=== PATIENT | male | born 1980 | race Caucasian/White ===

== ENCOUNTER 2016-05-30 23:31 | Emergency (ER) ==
[2016-05-30 23:47] VITALS: BP 123/073
--- NOTE | 2016-05-30 23:57 | PROVIDER DOCUMENTATION ---
[facility] General <Gabriel Abad - Last Filed: 05/31/16 00:00> - General Source: patient - History of Present Illness-[facility] Location: reports: ear (R), ear (L) Quality of Pain: reports: aching Severity: reports: mild Onset/Duration: reports: 5 days ago Timing: reports: still present Prearrival Treatment: Initiated no prearrival treatment Locality of Occurance: Home Similar Symptoms Previously?: No Recently seen or treated by another doctor?: No - Ears Ear Problem Symptoms: reports: earache, hearing loss Ear Problem Context: reports: none <Quin Stanton - Last Filed: 05/31/16 00:03> - General Chief Complaint: Earache Stated Complaint: EAR PAIN Time Seen by Provider: 05/30/16 23:50 Allergies/Adverse Reactions: Patient Allergies Allergy/AdvReac Type Severity Reaction Status Date / Time loratadine Allergy Intermediate RASH Verified 05/05/16 22:57 [From Claritin-D 12 Hour] pseudoephedrine sulfate * Allergy Intermediate RASH Verified 05/05/16 22:57 [From Claritin-D 12 Hour] tramadol Allergy Unknown Verified 05/05/16 22:57 Home Medications: Home Medication List Medication Instructions Recorded Confirmed Last Taken Type Hydrocodone/APAP 5 mg/325 mg 1 each PO Q6H PRN PRN #7 tablet 05/10/16 Unknown Rx [Lafferty-5] - History of Present Illness-[facility] Nature of Presenting Problem: 35 year old M presents to the ED with a cc of right ear pain and loss of hearing with an onset of 5 days ago. Pt states that he has also had some decreased hearing in left ear. (Quin Stanton) Review of Systems - Adult - REVIEW OF SYSTEMS - ADULT Constitutional: denies: chills, fever Eyes: denies: blurred vision, double vision Ears, Nose, Mouth & Throat: reports: ear pain, hearing loss Cardiovascular: reports: no symptoms reported Respiratory: reports: no symptoms reported Gastrointestinal: reports: no symptoms reported Genitourinary: reports: no symptoms reported Musculoskeletal: reports: no symptoms reported Integumentary: reports: no symptoms reported Neurological: reports: no symptoms reported Psychiatric: reports: no symptoms reported Endocrine: reports: no symptoms reported Hematologic/Lymphatic: reports: no symptoms reported Allergic/Immunologic: reports: no symptoms reported All Other Systems: Reviewed and Negative <Quin Stanton - Last Filed: 05/31/16 00:03> Past History - Adult - PAST MEDICAL HISTORY-ADULT Review of Records: reports: Nursing Assessment Review, Medications Reviewed Major Childhood Illnesses: reports: denies history Cardiovascular: reports: other (pleurisy) Respiratory: reports: denies history Gastrointestinal: reports: other (h.pylori) Obstetrical/Gynecological: reports: denies history Genitourinary: reports: denies history Musculoskeletal: reports: denies history Neurological: reports: denies history Endocrine/Immune: reports: denies history Other Conditions: reports: denies history - PRIOR SURGERIES/PROCEDURES Surgical/Procedure History: reports: other (oral) - IMMUNIZATION STATUS Childhood Immunizations: See Nurse Assessment Flu Vaccine: See Nurse Assessment - SOCIAL HISTORY Smoking: cigarettes, greater than 1 pack/day Provider spent 3-5 mins advising pt. on dangers of tobacco.: Discussed manners to quit use, and f/u contacts for add'l counseling. Substance Use: none/never Alcohol Use Frequency: never <Quin Stanton - Last Filed: 05/31/16 00:03> Physical Exam- EENT - Physical Exam EENT Initial Vital Signs Reviewed: Yes General Appearance: appears well, alert, no apparent distress Ear Exam: bilateral ear: TM normal (after irrigation), other (ear wax impaction of bilateral ears) Respiratory: no respiratory distress Cardiovascular: regular rate, rhythm Integumentary: normal color, normal turgor, warm/dry Psych/Mental Status: normal mood/affect, normal thought content, normal thought process, oriented x 3 <Quin Stanton - Last Filed: 05/31/16 00:03> Progress <Gabriel Abad - Last Filed: 05/31/16 00:00> <Quin Stanton - Last Filed: 05/31/16 00:03> - PLAN OF CARE/RESULTS Progress/Plan/Lab Results: plan of care: ear irrigation Vital Signs - 24 hr 05/30/16 23:44 Temperature 98 F Pulse Rate 77 Respiratory 18 Rate Blood Pressure 123/073 O2 Sat by Pulse 99 Oximetry Pt given results and will be d/c home w/o rx to follow up with PCP. Pt verbally understood instructions. PT remained clinically stable throughout the course of the ED stay and will return if symptoms worsen. (Quin Stanton) Procedures - ENT PROCEDURES Cerumen Removal: Bilateral Method: Irrigation <Quin Stanton - Last Filed: 05/31/16 00:03> Departure - Departure Time of Disposition Order: 00:00 Certified Medical Emergency: Emergent <Gabriel Abad - Last Filed: 05/31/16 00:00> <Quin Stanton - Last Filed: 05/31/16 00:03> - Departure DIAGNOSIS: Impacted cerumen of both ears Disposition: HOME 01 Condition: Stable Additional Instructions: For full assessment, please contact [facility] Medical Record Department Referrals: Lasha Landrum MD [Primary Care Provider] - Attestation - Scribe Verification/Attestation Scribe:: Quin Stanton Acting as Scribe for:: Gabriel Abad Scribe documention review:: This chart was documented by a scribe and accurately reflects the service the provider performed and the decisions made by the provider. <Quin Stanton - Last Filed: 05/31/16 00:03> Physician Attestation - Physician Attestation I, the provider, attest to the following statement:: Gabriel Abad Physician documentation Attestation:: This documentation recorded by the scribe accurately reflects the service I personally performed and the decisions made by me. <Quin Stanton - Last Filed: 05/31/16 00:03>
== END 2016-05-31 00:18 | disposition home or self-care (01) ==
LOC: P.ED 23:31
DX: H61.23 Impacted cerumen, bilateral (principal); H92.03 Otalgia, bilateral; F17.210 Nicotine dependence, cigarettes, uncomplicated; Z71.6 Tobacco abuse counseling